=== PATIENT | female | born 1980 | race Caucasian/White ===

== ENCOUNTER 2019-09-16 18:09 | Observation (INO) ==
[2019-09-16] MEDS ORDERED: Morphine Sulfate 2 MG/ML SYRINGE IVP ONE (18:28)
[2019-09-16] MEDS ORDERED: 0.9 % Sodium Chloride 1,000 ML IVC ONE (18:28)
[2019-09-16] MEDS ORDERED: Isovue-370 500 ML BOTTLE IVP ONE (18:29)
[2019-09-16] MEDS: Ondansetron 4 MG/2 ML VIAL IVP ONE ×2 (18:51→20:57)
[2019-09-16 19:01] LABS: Basophils % 0.3 %; Eosinophils # 0.1 K/mcL (0.0-0.6); Eosinophils % 0.4 %; Hematocrit 43.4 % (35.3-44.9); Hemoglobin 15.6 g/dL (11.5-15.4); Immature Granulocytes % 0.2 % (0-4); Lymphocytes # 2.9 K/mcL (0.6-4.6); Lymphocytes % 25.4 %; Mean Corpuscular HGB Conc 35.9 g/dL (31.6-35.5); Mean Corpuscular Hemoglobin 32.3 pg (28.0-33.3); Mean Corpuscular Volume 89.9 fL (83.0-100.0); Mean Platelet Volume 11.1 fL (9.4-12.4); Monocytes # 0.9 K/mcL (0.0-1.3); Monocytes % 8.1 %; Neutrophils # 7.5 K/mcL (1.6-8.9); Platelet Count 239 K/mcL (140-400); Red Blood Count 4.83 M/mcL (3.82-4.97); Red Cell Distribution Width 13.9 % (11.5-14.5); Segmented Neutrophils % 65.6 %; White Blood Count 11.4 K/mcL (4.3-11.1)
[2019-09-16 19:06] LABS: Bilirubin,Urine Negative (Negative); Blood,Urine Trace (Negative); Clarity,Urine Clear (Clear); Color,Urine Yellow (Yellow); Glucose,Urine (UA) Normal (Normal); Ketones,Urine Negative (Negative); Leukocyte Esterase,Urine Negative (Negative); Nitrite,Urine Negative (Negative); Protein,Urine 30 mg/dL (Neg-Trace); Specific Gravity,Urine 1.019 (1.010-1.025); Urobilinogen,Urine Normal (Normal)
[2019-09-16 19:09] LABS: Bacteria,Urine None Seen per hpf (None-Few); Hyaline Casts,Urine Few per lpf (None-Few); RBC,Urine 0-3 per hpf (0-3); Squamous Epithelial Cell,Urine Many per lpf (None-Few)
[2019-09-16 19:35] LABS: Alanine Aminotransferase 10 Units/L (7-52); Albumin 4.3 g/dL (3.5-5.7); Albumin/Globulin Ratio 1.6 (1.1-2.2); Alkaline Phosphatase 92 Units/L (34-104); Aspartate Amino Transferase 10 Units/L (13-39); BUN/Creatinine Ratio 10 (6-26); Bilirubin,Direct 0.1 mg/dL (0.0-0.2); Bilirubin,Indirect 0.5 mg/dL (0.0-1.0); Bilirubin,Total 0.6 mg/dL (0.3-1.0); Blood Urea Nitrogen 7 mg/dL (6-20); Calcium 9.1 mg/dL (8.6-10.3); Carbon Dioxide 19 mEq/L (23-29); Chloride 105 mEq/L (98-107); Globulin 2.7 g/dL (2.4-3.5); Glucose 99 mg/dL (70-105); Lipase 13 Units/L (11-82); Osmolality,Calculated 280 (280-300); Potassium 3.8 mEq/L (3.5-5.1); Sodium 136 mEq/L (136-145); eGFR For African Americans > 60 (> 60); eGFR For Non-African Americans > 60 (> 60)
[2019-09-16] MEDS ORDERED: *HR* HYDROmorphone (PF) 1 MG/ML SYRINGE IVP ONE (20:08)
[2019-09-16] MEDS ORDERED: 0.9 % Sodium Chloride 1,000 ML IVC SCH ×2 (20:15→20:45)
[2019-09-16] MEDS ORDERED: Ondansetron 4 MG/2 ML VIAL IVP ONE (20:38)
[2019-09-16] MEDS ORDERED: Ondansetron 4 MG/2 ML VIAL ONE ×2 (20:39→22:39)
[2019-09-16] MEDS ORDERED: CefOXitin 1,000 MG VIAL ONE (21:24)
[2019-09-16] MEDS ORDERED: *HR* Rocuronium Bromide 50 MG/5 ML VIAL ONE (21:58)
[2019-09-16] MEDS ORDERED: Lidocaine -MPF 2% 2 ML VIAL ONE (21:58)
[2019-09-16] MEDS ORDERED: Lidocaine -MPF 4% 5 ML AMPUL ONE (21:58)
[2019-09-16] MEDS ORDERED: *HR* Midazolam HCl 2 MG/2 ML VIAL ONE (21:59)
[2019-09-16] MEDS ORDERED: *HR* FentaNYL (PF) 100 MCG/2 ML VIAL ONE (21:59)
[2019-09-16] MEDS ORDERED: *HR* Propofol 200 MG/20 ML VIAL IVP ONE (21:59)
[2019-09-16] MEDS ORDERED: Metoclopramide 10 MG/2 ML VIAL ONE (22:03)
[2019-09-16] MEDS ORDERED: Famotidine 20 MG/2 ML VIAL ONE (22:07)
[2019-09-16] MEDS ORDERED: Acetaminophen IV 1,000 MG/100 ML INFUS..BTL ONE (22:07)
[2019-09-16] MEDS ORDERED: CefOXitin 2,000 MG VIAL ONE (22:19)
[2019-09-16] MEDS ORDERED: *HR* HYDROMORPHONE 2 MG/ML VIAL ONE (22:54)
[2019-09-16] MEDS ORDERED: Neostigmine Methylsulfate 3 MG/3 ML SYRINGE ONE (23:11)
[2019-09-17] MEDS ORDERED: *HR* OxyCODONE/APAP 5/325 TABLET PO PRN ×2 (00:15→12:20)
[2019-09-17] MEDS ORDERED: cefOXitin 2,000 MG in Water for inj. (sterile) 20 ML IVP SCH ×2 (00:15→08:00)
[2019-09-17] MEDS ORDERED: 0.9 % Sodium Chloride 1,000 ML IVC SCH (00:15)
[2019-09-17] MEDS ORDERED: Ondansetron 4 MG/2 ML VIAL IVP PRN (00:15)
[2019-09-17] MEDS ORDERED: *HR* Promethazine 25 MG/ML VIAL IVP PRN (01:13)
[2019-09-17 10:38] VITALS: BP 130/75
== END 2019-09-17 14:51 | disposition home or self-care (01) ==
LOC: 3ANU 18:09 → EMEROOARM 18:09 → 3ANU 21:35
PROVIDERS: ADMIT Surgery; ATTEND Surgery